=== PATIENT | female | born 1945 | race Caucasian/White ===

== ENCOUNTER 2017-01-25 07:28 | Outpatient (CLI) | payer MEDICARE, OTHER | END 2017-01-25 07:29 | disposition home or self-care (01) | DX: R71.8 Other abnormality of red blood cells (principal) ==

== ENCOUNTER 2017-09-22 20:04 | Outpatient (CLI) | payer MEDICARE | END 2017-09-22 20:05 | disposition critical access hospital (66) | LOC: EMS 20:04 | PROVIDERS: ATTEND Surgery | DX: R41.3 Other amnesia (principal) | CPT/HCPCS: A0425; A0429 ==

== ENCOUNTER 2017-09-22 20:29 | Emergency (ER) | payer MEDICARE ==
[2017-09-22 21:05] LABS: BASOPHILS % (AUTO) 0.3 %; EOSINOPHILS % (AUTO) 0.7 %; HCT - HEMATOCRIT 44.1 % (37.0-47.0); HGB - HEMOGLOBIN 14.7 g/dL (12.0-16.0); LYMPHOCYTES # (AUTO) 1.7 10^3/uL (1.5-3.5); MEAN CORPUSCULAR HEMOGLOBIN 34.9 pg (27.0-31.0); MEAN CORPUSCULAR HGB CONC 33.4 g/dL (32.0-36.0); MEAN CORPUSCULAR VOLUME 104.6 fL (81.0-99.0); MEAN PLATELET VOLUME 8.7 fL (7.9-10.8); MONOCYTES # (AUTO) 0.4 10^3/uL (0.0-1.0); MONOCYTES % (AUTO) 6.4 %; NEUTROPHILS # (AUTO) 3.9 10^3/uL (1.5-6.6); NEUTROPHILS % (AUTO) 64.6 %; NUCLEATED RED BLOOD CELLS AUTO 0.1 /100WBC; RED BLOOD COUNT 4.22 10^6/uL (4.20-5.40); RED CELL DISTRIBUTION WIDTH 12.8 % (12.0-15.0)
[2017-09-22 21:17] LABS: ALBUMIN/GLOBULIN RATIO 1.3 (1.0-2.2); BILIRUBIN,TOTAL 0.2 mg/dL (0.2-1.0); CALCIUM 8.9 mg/dL (8.5-10.3); CREATININE 0.5 mg/dL (0.4-1.0); POTASSIUM 3.4 mmol/L (3.5-5.0); TOTAL PROTEIN 7.9 g/dL (6.7-8.2)
[2017-09-22 21:19] LABS: BILIRUBIN,URINE NEGATIVE (NEGATIVE)
[2017-09-22 21:20] LABS: UA w/ MICROSCOPIC CHARGE YES
[2017-09-22 21:45] LABS: UR CULTURE IF IND INDICATED
[2017-09-22] MEDS ORDERED: SODIUM CHLORIDE 0.9% 1,000 ML IV ONE (21:55)
--- NOTE | 2017-09-22 21:55 | ED Physician Documentation ---
History of Present Illness - Stated complaint Stated Complaint: FALL - Chief complaint Chief Complaint: General - History obtained from History obtained from: Patient, Family, EMS - History of Present Illness Timing: Today Pain level max: 0 Pain level now: 0 Improved by: nothing Worsened by: nothing - Additonal information Additional information: Patient is a 71-year-old female who states that she had 2 shots of tequila earlier today with her brother. She was found on her porch today screaming for help. She denies any injuries. She apparently had a bloody towel at that time and states that she often gets frequent nosebleeds. She does not recall what happened. She is not complaining of any pain in the head, neck or anywhere else on her body. She does have a splint on the left wrists and hand for chronic injuries. Does not have any complaints at this time. Review of Systems Unable to obtain: Intoxicated Constitutional: denies: Fever, Chills Ears: denies: Ear pain Nose: denies: Rhinorrhea / runny nose, Congestion Throat: denies: Sore throat Respiratory: denies: Cough GI: denies: Abdominal Pain, Nausea, Vomiting, Diarrhea Skin: denies: Rash Musculoskeletal: denies: Neck pain, Back pain Neurologic: reports: Confused (repetitive questioning). denies: Focal weakness , Numbness, Headache PD PAST MEDICAL HISTORY - Past Medical History Past Medical History: Yes Psych: Depression, Anxiety - Past Surgical History Past Surgical History: Yes General: Cholecystectomy - Present Medications Home Medications: Ambulatory Orders Medication Instructions Recorded Confirmed Acetaminophen [Tylenol] 650 mg PO PRN PRN 09/22/17 09/22/17 Acyclovir 400 mg PO BID 09/22/17 09/22/17 Amitriptyline HCl 75 mg PO TID 09/22/17 09/22/17 Amoxicillin Chew [Amoxicillin] 125 mg PO DAILY 09/22/17 09/22/17 Citalopram [CeleXA] 30 mg PO DAILY 09/22/17 09/22/17 Fluticasone [Flonase] 1 spray IN DAILY 09/22/17 09/22/17 Gabapentin 300 mg PO DAILY 09/22/17 09/22/17 Ibuprofen 600 mg PO PRN PRN 09/22/17 09/22/17 Lactobacillus Acidophilus 1 cap PO DAILY 09/22/17 09/22/17 [Probiotic Acidophilus] Lorazepam [Ativan] 1 mg PO PRN PRN 09/22/17 09/22/17 Melatonin 5 mg PO ACHS 09/22/17 09/22/17 - Allergies Allergies/Adverse Reactions: Allergies Allergy/AdvReac Type Severity Reaction Status Date / Time No Known Drug Allergies Allergy Verified 09/22/17 20:40 - Social History Does the pt smoke?: No Smoking Status: Never smoker Does the pt drink ETOH?: Yes ETOH Use: Liquor Does the pt have substance abuse?: No - Family History Family history: reports: Non contributory - Immunizations Immunizations are current?: No PD ED PE NORMAL - Vitals Vital signs reviewed: Yes - General General: Alert and oriented X 3, No acute distress, Other (intoxicated) - HEENT HEENT: Atraumatic, PERRL, EOMI, Moist mucous membranes, Pharynx benign, Other ( Dried blood in the right nare. No active bleeding.) - Neck Neck: Supple, no meningeal sign, No bony TTP - Cardiac Cardiac: RRR, Strong equal pulses - Respiratory Respiratory: No respiratory distress, Clear bilaterally - Abdomen Abdomen: Soft, Non tender, Non distended - Back Back: No spinal TTP - Derm Derm: Warm and dry - Extremities Extremities: No deformity, No tenderness to palpate, Normal ROM s pain - Neuro Neuro: Alert and oriented X 3, president & founder 2-12 intact, No motor deficit, No sensory deficit, Normal speech Eye Opening: Spontaneous Motor: Obeys Commands Verbal: Confused (intermittently confused and repetitive) GCS Score: 14 - Psych Psych: Normal mood, Normal affect Results - Vitals Vitals: Vital Signs - 24 hr 09/22/17 09/22/17 20:36 23:29 Temperature 36.7 C Heart Rate 84 98 Respiratory 16 16 Rate Blood Pressure 180/99 H 160/91 H O2 Saturation 97 96 Oxygen O2 Source Room air - EKG (time done) 2224 Rate: Rate (enter#) (84) Rhythm: NSR [place]: Normal Intervals: Normal [place] QRS: Normal Ischemia: Normal ST segments - Labs Labs: Laboratory Tests 09/22/17 09/22/17 09/22/17 20:57 20:57 21:05 WBC 6.0 RBC 4.22 Hgb 14.7 Hct 44.1 MCV 104.6 H MCH 34.9 H MCHC 33.4 RDW 12.8 Plt Count 215 MPV 8.7 Neut # 3.9 Lymph # 1.7 [place] # 0.4 Eos # 0.0 Baso # 0.0 Absolute Nucleated RBC 0.00 Nucleated RBC % 0.1 Sodium 134 L Potassium 3.4 L Chloride 95 L Carbon Dioxide 26 Anion Gap 13.0 BUN 15 Creatinine 0.5 Estimated GFR (MDRD) 121 Glucose 98 Calcium 8.9 Total Bilirubin 0.2 AST 32 ALT 30 Alkaline Phosphatase 96 Total Protein 7.9 Albumin 4.5 Globulin 3.4 Albumin/Globulin Ratio 1.3 Lipase 30 Urine Color YELLOW Urine Clarity HAZY Urine pH 6.0 Ur Specific [place] <=1.005 Urine Protein NEGATIVE Urine Glucose (UA) NEGATIVE Urine Ketones NEGATIVE Urine Occult Blood SMALL H Urine Nitrite NEGATIVE Urine Bilirubin NEGATIVE Urine Urobilinogen 0.2 (NORMAL) Ur Leukocyte Esterase SMALL H Urine RBC 0-5 Urine WBC 6-10 H Ur Squamous Epith Cells FEW Squamous Urine Bacteria Few Ur Microscopic Review INDICATED Urine Culture Comments INDICATED Urine Opiates Screen NEGATIVE Ur Oxycodone Screen NEGATIVE Urine Methadone Screen NEGATIVE Ur Propoxyphene Screen NEGATIVE Ur Barbiturates Screen NEGATIVE Ur Tricyclics Screen POSITIVE H Ur Phencyclidine Scrn NEGATIVE Ur Amphetamine Screen NEGATIVE U Methamphetamines Scrn NEGATIVE U Benzodiazepines Scrn NEGATIVE Urine Cocaine Screen NEGATIVE U Cannabinoids Screen NEGATIVE Ethyl Alcohol 279.6 - Rads (name of study) CT head Radiology: Prelim report reviewed, EMP read contemporaneously, See rad report ( no acute intracranial abnormality) CT cervical spine Radiology: Prelim report reviewed, EMP read contemporaneously, See rad report ( no acute fracture) PD MEDICAL DECISION MAKING - ED course Complexity details: reviewed results, re-evaluated patient, considered differential, d/w patient, d/w family ED course: Patient is a 71-year-old female presents to the emergency department with alcohol intoxication. Unclear what happened tonight, EKG does not show any acute changes. No acute findings on telemetry. Head CT is negative. Cervical spine CT is negative. Family is comfortable taking her home at this time. She did have some slight dried blood in the right nare. No active bleeding. Counseled regarding the need to stop drinking and resources given. Patient and family counseled regarding signs and symptoms for which I believe and urgent re- evaluation would be necessary. Patient with good understanding of and agreement to plan and is comfortable going home at this time This document was made in part using voice recognition software. While efforts are made to proofread this document, sound alike and grammatical errors may occur. Ambulating well in the emergency department. Departure - Departure Disposition: 01 Home, Self Care Clinical Impression: Alcohol intoxication Qualifiers: Complication of substance-induced condition: uncomplicated Qualified Code(s): F10.920 - Alcohol use, unspecified with intoxication, uncomplicated Condition: Good Instructions: ED Alcohol Intoxication Follow-Up: KATHIA YOUNG MD [Primary Care Provider] - Within 1 week Comments: You need to stop drinking alcohol. you can talk to your doctor about programs to help you quit. Return if you worsen. Discharge Date/Time: 09/22/17 23:30
--- NOTE | 2017-09-22 22:34 | CT Preliminary Report ---
Exam: CT HEAD W/O IMPRESSION: Generalized age-related cortical atrophic changes without evidence of acute intracranial abnormality. [facility] SITE ID: [id number]
--- NOTE | 2017-09-22 22:37 | CT Preliminary Report ---
Exam: CT CERVICAL SPINE W/O IMPRESSION: No acute cervical spine fracture. [facility] SITE ID: [id number]
--- NOTE | 2017-09-22 22:46 | CT Report ---
EXAM: CT HEAD EXAM DATE: 09/22/2017 10:11 PM. CLINICAL HISTORY: Epistaxis, amnesia, found down. COMPARISON: None. TECHNIQUE: Multiaxial CT images were obtained from the foramen magnum to the vertex. Reformats: Coron al. IV contrast: None. In accordance with CT protocol optimization, one or more of the following dose reduction techniques w ere utilized for this exam: automated exposure control, adjustment of mA and/or KV based on patient s ize, or use of iterative reconstructive technique. FINDINGS: Parenchyma: No intraparenchymal hemorrhage. No evidence of mass, midline shift, or CT findings of acu te infarction. [place]in-white differentiation is distinct. Mild diffuse chronic microangiopathic white ma tter changes are evident. Extraaxial Spaces: Normal for age. No subdural or epidural collections identified. Ventricles: The ventricles and cortical sulci are mildly enlarged, consistent with age-related tissue loss. Sinuses and orbits: Imaged paranasal sinuses, orbits, and mastoids show no significant abnormality. Bones: No evidence of fracture or calvarial defect. IMPRESSION: Generalized age-related cortical atrophic changes without evidence of acute intracranial abnormality. [facility] Referring Provider Line: [phone] SITE ID: [id number]
--- NOTE | 2017-09-22 22:52 | CT Report ---
EXAM: CT CERVICAL SPINE WITHOUT CONTRAST DATE: 09/22/2017 10:20 PM. HISTORY: Epistaxis, amnesia, found down. COMPARISONS: None. TECHNIQUE: Thin-section axial images were acquired of the cervical spine without contrast. Post-proce ssing: Coronal and sagittal reformats. Other: None. In accordance with CT protocol optimization, one or more of the following dose reduction techniques w ere utilized for this exam: automated exposure control, adjustment of mA and/or KV based on patient s ize, or use of iterative reconstructive technique. FINDINGS: Alignment: Degenerative retrolisthesis at C2-C3 measures 12 millimeters. Degenerative grade 1 lili listhesis is present at C3-C4 measuring 23 millimeters and at C4-C5 and C5-C6 measuring 12 millimet ers. There is no scoliosis. Bones: No acute cervical spine fracture is identified. Interspace Levels/Facets: C1-C2: Mild degenerative changes are present anteriorly without craniocervical stenosis. C2-C3: Bilateral facet arthropathy is present without spinal canal or foraminal stenosis. C3-C4: Anterolisthesis is present at this level with uncovering of the disk. The spinal canal and for tello are patent. C4-C5: Anterolisthesis is present this level with uncovering of the disk. The spinal canal and forami na are patent. C5-C6: Anterolisthesis is present at this level with uncovering of the disk. The spinal canal and for tello are patent. C6-C7: The spinal canal is patent. There is moderate right and mild left foraminal narrowing due to u ncovertebral hypertrophy. C7-T1: Unremarkable. Musculature: There is moderate diffuse fatty atrophy of the posterior paraspinal muscles. Other: A 6 mm hypodense nodule is noted in the anterior left thyroid lobe (image 59, series 4). The l melia apices are clear. IMPRESSION: No acute cervical spine fracture. [facility] Referring Provider Line: [phone] SITE ID: [id number]
[2017-09-22 23:30] VITALS: BP 160/91
== END 2017-09-22 23:30 | disposition home or self-care (01) ==
LOC: EDUNIT# → ED 20:29
DX: F10.920 Alcohol use, unspecified with intoxication, uncomplicated (principal); R04.0 Epistaxis; R41.3 Other amnesia
CPT/HCPCS: 36415; 70450; 72125; 80053; 80306; 81001; 83690; 85025; 87086; 93005; 96360; 99283; 99284; G0480; 80320; 81003

== ENCOUNTER 2017-12-24 18:33 | Emergency (ER) | payer MEDICARE ==
[2017-12-24] MEDS ORDERED: AMPICILLIN/SULBACTAM 3 GM in SODIUM CHLORIDE 0.9% MINIBAG 100 ML IV STA (20:27)
[2017-12-24] MEDS ORDERED: MORPHINE 2 MG/ML CARPUJECT IVP STA (20:30)
[2017-12-24] MEDS ORDERED: diphenhydrAMINE INJ 50 MG/ML VIAL IVP STA (20:31)
[2017-12-24] MEDS ORDERED: SODIUM CHLORIDE 0.9% 1,000 ML IV ONE (20:31)
--- NOTE | 2017-12-24 20:52 | ED Physician Documentation ---
PD HPI UPPER EXT INJURY - Stated complaint Stated Complaint: LT THUMB LAC, REDNESS - Chief complaint Chief Complaint: Wound - History of Present Illness Location: Left, Finger Type of injury: Puncture wound Where injury occurred: Home Timing - onset: Yesterday Timing - details: Gradual onset, Still present Worsened by: Moving, Palpating Similar symptoms before: Has not had sx before Recently seen: Not recently seen - Additonal information Additional information: Patient is a 72 year old female with no significant past medical history who is presenting to the emergency department for finger pain, and swelling and streaking redness up her arm. Patient states that she was bit by her cat two days ago and her symptoms have become progressively worse. Review of Systems Constitutional: denies: Fever, Chills Eyes: denies: Decreased vision Ears: denies: Ear pain, Drainage/discharge Nose: reports: Reviewed and negative Throat: reports: Reviewed and negative Cardiac: reports: Reviewed and negative Respiratory: denies: Dyspnea, Cough GI: reports: Nausea. denies: Abdominal Pain, Vomiting : reports: Reviewed and negative Skin: reports: Rash, Lesions Musculoskeletal: reports: Extremity pain, Extremity swelling Neurologic: denies: Generalized weakness, Focal weakness, Numbness Immunocompromised: denies: Immunocompromised PD PAST MEDICAL HISTORY - Past Medical History Past Medical History: Yes Psych: Depression, Anxiety - Past Surgical History Past Surgical History: Yes General: Cholecystectomy - Present Medications Home Medications: Ambulatory Orders Medication Instructions Recorded Confirmed Acetaminophen [Tylenol] 650 mg PO PRN PRN 09/22/17 09/22/17 Acyclovir 400 mg PO BID 09/22/17 09/22/17 Amitriptyline HCl 75 mg PO TID 09/22/17 09/22/17 Amoxicillin Chew [Amoxicillin] 125 mg PO DAILY 09/22/17 09/22/17 Citalopram [CeleXA] 30 mg PO DAILY 09/22/17 09/22/17 Fluticasone [Flonase] 1 spray IN DAILY 09/22/17 09/22/17 Gabapentin 300 mg PO DAILY 09/22/17 09/22/17 Ibuprofen 600 mg PO PRN PRN 09/22/17 09/22/17 Lactobacillus Acidophilus 1 cap PO DAILY 09/22/17 09/22/17 [Probiotic Acidophilus] Lorazepam [Ativan] 1 mg PO PRN PRN 09/22/17 09/22/17 Melatonin 5 mg PO ACHS 09/22/17 09/22/17 Amox/Clav 875/125 [Augmentin] 1 each PO Q12H #20 tablet 12/24/17 - Allergies Allergies/Adverse Reactions: Allergies Allergy/AdvReac Type Severity Reaction Status Date / Time amoxicillin [From Augmentin] Allergy Intermediate Unknown Verified 12/24/17 19: 09 clavulanic acid Allergy Intermediate Unknown Verified 12/24/17 19:09 [From Augmentin] - Social History Does the pt smoke?: No Smoking Status: Never smoker Does the pt drink ETOH?: Yes Does the pt have substance abuse?: No - Immunizations Immunizations are current?: Yes Immunizations: TDAP current <10years PD ED PE NORMAL - Vitals Vital signs reviewed: Yes - General General: Alert and oriented X 3 - HEENT HEENT: Atraumatic, PERRL - Cardiac Cardiac: RRR - Respiratory Respiratory: No respiratory distress - Abdomen Abdomen: Soft - Neuro Neuro: Alert and oriented X 3, No motor deficit, Normal speech Eye Opening: Spontaneous - Psych Psych: Normal mood PD ED PE EXPANDED - Derm Derm: Rash (streaking redness coming from the left thumb up the forearm) - Extremities Extremities: Left finger(s) (tenderness, erythema and swelling of left 1st digit ) Results - Vitals Vitals: Vital Signs - 24 hr 12/24/17 12/24/17 12/24/17 19:04 21:27 22:21 Temperature 36.4 C L 36.7 C 36.6 C Heart Rate 95 77 74 Respiratory 18 18 18 Rate Blood Pressure 156/96 H 159/110 H 168/92 H O2 Saturation 98 100 100 Oxygen O2 Source Room air PD MEDICAL DECISION MAKING - ED course Complexity details: reviewed old records, reviewed results, re-evaluated patient , considered differential, d/w patient ED course: Patient was seen and examined at bedside. Due to the severity of the cellulitis iv access was gained and patient was treated with fluids, 3gms of unasyn, morphine and benadryl. When patient was asked about her augmentin allergy she stated it was not severe and she could take it if it was the recommended antibiotic. Patient tolerated the IV treatment well and was stable for discharge with outpatient followup. Departure - Departure Disposition: 01 Home, Self Care Clinical Impression: Cellulitis and abscess of hand Condition: Good Instructions: ED Bite Animal General, ED Infec Skin Cellulitis Follow-Up: Osorio Stephenson MD [Primary Care Provider] - Within 3 Days Prescriptions: Amox/Clav 875/125 [Augmentin] 1 each PO Q12H #20 tablet Comments: Your symptoms today are being caused by cellulitis secondary to your cat bite. You had your first dose of antibiotics via the iv tonight. You will be on augmentin twice a day for the next 10 days. You can take motrin or tylenol as needed for pain. You should follow up with your doctor this week for wound check. You may return to the emergency department at any time for new, worsening or uncontrollable symptoms. Discharge Date/Time: 12/24/17 22:46
[2017-12-24 22:36] VITALS: BP 168/92
== END 2017-12-24 22:46 | disposition home or self-care (01) ==
LOC: ED 18:33
DX: L03.114 Cellulitis of left upper limb (principal); L02.512 Cutaneous abscess of left hand; W55.01XA Bitten by cat, initial encounter
CPT/HCPCS: 96365; 96375; 99283; J1200

== ENCOUNTER 2019-08-26 14:55 | Outpatient (CLI) | payer MEDICARE | END 2019-08-26 14:56 | disposition EMS.NT | LOC: EMS 14:55 | PROVIDERS: ATTEND Surgery | DX: R41.0 Disorientation, unspecified (principal); F41.9 Anxiety disorder, unspecified ==

== ENCOUNTER 2019-09-24 11:02 | Outpatient (CLI) | payer MEDICARE ==
--- NOTE | 2019-09-25 04:14 | XRAY Report ---
Reason: M54.2 Procedure Date: 09/24/2019 Accession Number: [id number] / [id number] Procedure: XRS - Thoracic Spine 2 View CPT Code: Final Report FULL RESULT: EXAM: THORACIC SPINE RADIOGRAPHY EXAM DATE: 09/24/2019 11:31 AM. CLINICAL HISTORY: M54. 2. COMPARISON: CERVICAL SPINE 2 VIEW 09/24/2019 11:28 AM CERVICAL SPINE W/O 09/22/2017 10:13 PM. TECHNIQUE: 2 views. FINDINGS: Alignment: Normal. No spondylolisthesis or scoliosis. Bones: No fractures or bone lesions. Disks: Normal. Disk heights are maintained. Soft Tissues: Normal. The visualized lungs and cardiomediastinal silhouette are normal. IMPRESSION: Grossly negative thoracic spine radiography. If there is continued clinical concern, CT is suggested in this elderly patient. [facility]
--- NOTE | 2019-09-25 04:16 | XRAY Report ---
Reason: M54.2 Procedure Date: 09/24/2019 Accession Number: [id number] / [id number] Procedure: XRS - Cervical Spine 2 View CPT Code: Final Report FULL RESULT: EXAM: CERVICAL SPINE RADIOGRAPHY EXAM DATE: 09/24/2019 11:31 AM. CLINICAL HISTORY: Fall with neck pain COMPARISONS: CERVICAL SPINE W/O 09/22/2017 10:13 PM. TECHNIQUE: 3 views. FINDINGS: Alignment: Stable without acute malalignment seen. Stable minimal degenerative anterolisthesis of C3 on C4 and retrolisthesis of C2 on C3. Bones: The cervical vertebral bodies and posterior elements are well visualized from the skull base through C7-T1. No fractures or bone lesions. Degenerative changes: Moderate disk level degenerative changes at C5-C6, C6-C7, and C7-T1. Advanced diffuse facet DJD again noted. Soft Tissues: Normal. No prevertebral soft tissue swelling. The visualized lung apices are clear. IMPRESSION: 1. No acute abnormality seen in the cervical spine. 2. Moderate to severe degenerative changes appear grossly stable. [facility]
== END 2019-09-24 11:03 | disposition home or self-care (01) ==
LOC: DI.S 11:02
PROVIDERS: ATTEND Nurse Practitioner Family
DX: M50.322 Other cervical disc degeneration at C5-C6 level (principal); M47.812 Spondylosis without myelopathy or radiculopathy, cervical region; M43.12 Spondylolisthesis, cervical region
CPT/HCPCS: 72040; 72070

== ENCOUNTER 2019-09-30 14:31 | Outpatient (CLI) | payer MEDICARE | END 2019-09-30 14:32 | disposition critical access hospital (66) | LOC: EMS 14:31 | PROVIDERS: ATTEND Surgery | DX: M25.512 Pain in left shoulder (principal); M25.511 Pain in right shoulder; M54.2 Cervicalgia; R06.02 Shortness of breath | CPT/HCPCS: A0425; A0429 ==

== ENCOUNTER 2019-09-30 14:55 | Observation (INO) | payer MEDICARE ==
[2019-09-30] MEDS ORDERED: HYDROmorphone 1 MG/ML CARPUJECT IVP STA (15:04)
--- NOTE | 2019-09-30 15:08 | ED Physician Documentation ---
PD HPI BACK PAIN - Stated complaint Stated Complaint: NECK AND HEAD PX - History obtained from History obtained from: Patient, EMS - History of Present Illness Timing - onset: Other (73-year-old woman with history of colon cancer resection about 2 months ago presents with upper back and neck pain for the last 1-1/2 to 2 weeks is much worse with movement. She notes shortness of breath with it and productive cough. History is somewhat limited on arrival because she is histrionic and uncooperative. She refuses to move at all for examination. She says she was seen in the doctor's office for this without a specific diagnosis and was given codeine. On initial evaluation for the most part is refusing to talk to the until she get something for pain.) Review of Systems Constitutional: denies: Fever Cardiac: denies: Chest pain / pressure Respiratory: reports: Dyspnea, Cough GI: denies: Abdominal Pain, Nausea PD PAST MEDICAL HISTORY - Past Medical History Psych: Depression, Anxiety - Past Surgical History Past Surgical History: Yes General: Cholecystectomy - Present Medications Home Medications: Ambulatory Orders Medication Instructions Recorded Confirmed Acetaminophen [Tylenol] 650 mg PO PRN PRN 09/22/17 09/22/17 Acyclovir 400 mg PO BID 09/22/17 09/22/17 Amitriptyline HCl 75 mg PO TID 09/22/17 09/22/17 Citalopram [CeleXA] 30 mg PO DAILY 09/22/17 09/22/17 Fluticasone [Flonase] 1 spray IN DAILY 09/22/17 09/22/17 Gabapentin 300 mg PO DAILY 09/22/17 09/22/17 Ibuprofen 600 mg PO PRN PRN 09/22/17 09/22/17 Lorazepam [Ativan] 1 mg PO PRN PRN 09/22/17 09/22/17 Melatonin 5 mg PO ACHS 09/22/17 09/22/17 - Allergies Allergies/Adverse Reactions: Allergies Allergy/AdvReac Type Severity Reaction Status Date / Time amoxicillin [From Augmentin] Allergy Intermediate Unknown Verified 09/30/19 15:01 clavulanic acid Allergy Intermediate Unknown Verified 09/30/19 15:01 [From Augmentin] - Social History Does the pt smoke?: No Smoking Status: Never smoker Does the pt drink ETOH?: Yes Does the pt have substance abuse?: No - Immunizations Immunizations are current?: Yes Immunizations: TDAP current <10years PD ED PE NORMAL - Vitals Vital signs reviewed: Yes - General General: Other (She is histrionic but alert and oriented) - HEENT HEENT: PERRL, EOMI - Neck Neck: Other (She is in a c-collar placed by the paramedics for comfort with mild diffuse tenderness of the musculature of the posterior C-spine) - Cardiac Cardiac: RRR, No murmur - Respiratory Respiratory: No respiratory distress, Other (Clear to auscultation bilaterally anteriorly but she is unable to sit up or move for examination of her back initially.) - Abdomen Abdomen: Non tender - Derm Derm: Normal color, Warm and dry - Extremities Extremities: No edema, No calf tenderness / cord - Neuro Neuro: Alert and oriented X 3, Normal speech - Psych Psych: Other (Histrionic) Results - Vitals Vitals: Vital Signs - 24 hr 09/30/19 09/30/19 15:01 15:47 Temperature 36.5 C Heart Rate 100 102 H Respiratory 18 26 H Rate Blood Pressure 149/133 H 156/92 H O2 Saturation 86 L 100 Oxygen O2 Source Nasal cannula - EKG (time done) 1538 Rate: Rate (enter#) (100) Rhythm: Sinus tachycardia [place]: Normal Intervals: Normal [place] QRS: Normal Ischemia: Non specific changes. No: ST elevation c/w ischemia, ST depression Computer interpretation: Agree with computer - Labs Labs: Laboratory Tests 09/30/19 09/30/19 09/30/19 15:15 15:15 15:15 WBC 7.6 RBC 3.75 L Hgb 10.3 L Hct 33.6 L MCV 89.6 MCH 27.5 MCHC 30.7 L RDW 24.6 H Plt Count 251 MPV 9.8 Neut # (Auto) 5.9 Lymph # (Auto) 0.8 L [place] # (Auto) 0.6 Eos # (Auto) 0.1 Baso # (Auto) 0.0 Absolute Nucleated RBC 0.00 Nucleated RBC % 0.0 Manual Slide Review Indicated Platelet Estimate NORMAL (130-450,000) Platelet Morphology NORMAL APPEARANCE RBC Morph Micro Appear 3+ ANISOCYTOSIS Sodium 129 L Potassium 4.4 Chloride 89 L Carbon Dioxide 29 Anion Gap 11.0 BUN 14 Creatinine 0.7 Estimated GFR (MDRD) 82 L Glucose 103 H Calcium 8.9 Total Bilirubin 0.5 AST 39 ALT 48 Alkaline Phosphatase 143 H Troponin I High Sens 8.4 Total Protein 7.5 Albumin 3.8 Globulin 3.7 Albumin/Globulin Ratio 1.0 Lipase 25 - Rads (name of study) CT Cspine Radiology: EMP read contemporaneously (1. There is a slightly widened appearance to the anterior aspect of the C6-C7 disk space and there is indistinctness involving the supra endplate at C7 as well as anterior C7 osteophytes. given history of trauma, a fracture through this disk space extending into the superior C7 vertebral body is not excluded. Cervical spine MRI would be of value. 2. Interval increase in retrolisthesis of C2 relative to C3. 3. Solid osseous fusion is seen across the facet joints from C3-C5. This is stable. 4. Scattered uncovertebral joint spurring and facet hypertrophy are present. This results in scattered foraminal stenosis discussed.) CT PA Chest Radiology: EMP read contemporaneously (1. Single nonocclusive subsegmental acute pulmonary embolus is identified in the lateral basal right lower lobe. 2. Minimal dependent atelectasis bilaterally. 3. Mild 4.3 cm diameter fusiform ectasia of the ascending aorta. ) PD MEDICAL DECISION MAKING - ED course ED course: 73-year-old woman presents with hypoxemia and back pain, had a surgery a couple of months ago. This is concerning for PE and she does have a tiny PE on CT. She did have an oxygen requirement and therefore will be placed in observation for further evaluation and treatment. The neck pain is referred, not traumatic so I think the CT opinion of the radiologist is spurious under the circumstances. Spoke with Dr. Basurto for observation at 4:55 PM. Departure - Departure Disposition: ED Place in Observation Clinical Impression: Hypoxemia, Nontraumatic neck pain Pulmonary embolism Qualifiers: Pulmonary embolism type: unspecified Chronicity: acute Acute cor pulmonale presence: without acute cor pulmonale Qualified Code(s): I26.99 - Other pulmonary embolism without acute cor pulmonale Condition: Serious
[2019-09-30 15:21] LABS: BASOPHILS % (AUTO) 0.3 %; EOSINOPHILS # (AUTO) 0.1 10^3/uL (0.0-0.7); EOSINOPHILS % (AUTO) 1.4 %; HGB - HEMOGLOBIN 10.3 g/dL (12.0-16.0); LYMPHOCYTES # (AUTO) 0.8 10^3/uL (1.5-3.5); LYMPHOCYTES % (AUTO) 10.4 %; MEAN CORPUSCULAR HEMOGLOBIN 27.5 pg (27.0-31.0); MEAN CORPUSCULAR HGB CONC 30.7 g/dL (32.0-36.0); MEAN CORPUSCULAR VOLUME 89.6 fL (81.0-99.0); MEAN PLATELET VOLUME 9.8 fL (7.9-10.8); MONOCYTES # (AUTO) 0.6 10^3/uL (0.0-1.0); MONOCYTES % (AUTO) 8.4 %; NEUTROPHILS # (AUTO) 5.9 10^3/uL (1.5-6.6); NEUTROPHILS % (AUTO) 77.7 %; PLT - PLATELET COUNT 251 10^3/uL (130-450); RED BLOOD COUNT 3.75 10^6/uL (4.20-5.40); RED CELL DISTRIBUTION WIDTH 24.6 % (12.0-15.0); WHITE BLOOD COUNT 7.6 x10^3/uL (4.8-10.8)
[2019-09-30 15:33] LABS: ALBUMIN 3.8 g/dL (3.2-5.5); BILIRUBIN,TOTAL 0.5 mg/dL (0.2-1.0); CALCIUM 8.9 mg/dL (8.5-10.3); CREATININE 0.7 mg/dL (0.4-1.0); TOTAL PROTEIN 7.5 g/dL (6.7-8.2)
[2019-09-30] MEDS ORDERED: IOVERSOL 320 100 ML VIAL IVP ONE ×2 (15:36→16:37)
[2019-09-30] MEDS ORDERED: LORazepam 2 MG/ML VIAL IVP STA (15:46)
[2019-09-30 15:47] LABS: PLATELET ESTIMATE, MANUAL NORMAL (130-450,000) (NORMAL); PLATELET MORPHOLOGY NORMAL APPEARANCE (NORMAL); RBC MORPHOLOGY (MULTIPLE) 3+ ANISOCYTOSIS (NORMAL)
[2019-09-30] MEDS ORDERED: KETOROLAC 30 MG/ML VIAL IVP STA (16:34)
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
[2019-09-30] MEDS ORDERED: ENOXAPARIN 80 MG/0.8 ML SYRINGE SUBQ STA (16:49)
--- NOTE | 2019-09-30 16:52 | CT Report ---
Reason: back pain hypxemia Procedure Date: 09/30/2019 Accession Number: [id number] / [id number] Procedure: CT - ANGIO CHEST W/WO CPT Code: Final Report FULL RESULT: EXAM: CT ANGIOGRAM CHEST EXAM DATE: 09/30/2019 04:24 PM. CLINICAL HISTORY: Back pain, hypoxemia. COMPARISON: THORACIC SPINE 2 VIEW 09/24/2019 11:38 AM. TECHNIQUE: Routine helical imaging was performed through the chest in the pulmonary arterial phase. IV Contrast: 60 cc Optiray 320. Reconstructions: Coronal 3-D MIP reconstructions.Sagittal and coronal. In accordance with CT protocol optimization, one or more of the following dose reduction techniques were utilized for this exam: automated exposure control, adjustment of mA and/or KV based on patient size, or use of iterative reconstructive technique. FINDINGS: Pulmonary Arteries: Diagnostic quality: Adequate through the segmental arteries. There is a small nonocclusive acute subsegmental pulmonary embolism in the lateral basal right lower lobe as seen on series 5 images 62-64 and series 12 images 85-87. No other thromboemboli are identified on the right or left. RV/LV is within normal limits. There is no interventricular septal bowing. There is no reflux of contrast material in the IVC. Lungs/Pleura: There is moderate respiratory motion artifact. Accounting for expiratory-phase, there is no garth central airway abnormality. Lung volumes are low. There is mild dependent linear and groundglass atelectasis in both lungs. There is no lobar consolidation. There is no generalized interstitial abnormality. There is no emphysema. There is no pleural fluid or pneumothorax. Mediastinum: The heart size is normal. Lower thyroid gland and esophagus are unremarkable. No lymphadenopathy. Thoracic Aorta: Approximately 4.3 cm diameter fusiform ectasia of the ascending aorta with exact measurement problematic because of cardiac motion artifact. The thoracic aorta is slightly opacified with contrast. There is no gross dissection accounting for cardiac motion artifact. There is minimal calcification in the arch and descending thoracic aorta. Upper Abdomen: Gallbladder is surgically absent. Other: The visualized chest wall is unremarkable. Bones, including thoracic spine, are unremarkable. IMPRESSION: 1. Single nonocclusive subsegmental acute pulmonary embolus is identified in the lateral basal right lower lobe. 2. Minimal dependent atelectasis bilaterally. 3. Mild 4.3 cm diameter fusiform ectasia of the ascending aorta. RADIA The critical result notification system was initiated by Dr. Joey Morelos at 04:48 PM on 09/30/2019. The above critical result findings were discussed with Alvaro Luevano by Dr. Joey Morelos at 04:49 PM on 09/30/2019.
[2019-09-30] MEDS ORDERED: ONDANSETRON 4 MG/2 ML VIAL IVP PRN (17:07)
[2019-09-30] MEDS ORDERED: ACETAMINOPHEN 325 MG TABLET PO PRN (17:07)
[2019-09-30] MEDS ORDERED: LORazepam 1 MG TABLET PO PRN (17:22)
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
[2019-09-30] MEDS ORDERED: APIXABAN 5 MG TABLET PO SCH ×2 (18:00→21:00)
[2019-09-30 18:01] LABS: MUDS CUTOFF CONCENTRATIONS CUTOFF CONC BELOW:
[2019-09-30 18:02] LABS: BILIRUBIN,URINE NEGATIVE (NEGATIVE); GLUCOSE, URINE (UA) NEGATIVE (NEGATIVE); KETONES,URINE (UA) NEGATIVE (NEGATIVE); LEUKOCYTE ESTERASE, URINE SMALL (NEGATIVE); NITRITE,URINE NEGATIVE (NEGATIVE); OCCULT BLOOD,URINE TRACE-INTA (NEGATIVE); PH,URINE 6.5 PH (5.0-7.5); PROTEIN,URINE NEGATIVE (NEGATIVE); UROBILINOGEN,URINE 0.2 (NORMAL) E.U./dL (NORMAL)
[2019-09-30 18:04] LABS: CLARITY,URINE HAZY (CLEAR)
[2019-09-30 18:11] LABS: AMORPHOUS SEDIMENT,UR Few /LPF; BACTERIA,URINE Few /HPF (None Seen); RBC,URINE 0-5 /HPF (0-5); SQUAMOUS EPITHELIAL CELL,UR FEW Squamous (<= Few)
[2019-09-30 18:14] LABS: AMPHETAMINE SCREEN,URINE NEGATIVE (NEGATIVE); BENZODIAZEPINES SCREEN, URINE POSITIVE (NEGATIVE); COCAINE SCREEN URINE NEGATIVE (NEGATIVE); METHADONE SCREEN, URINE NEGATIVE (NEGATIVE); METHAMPHETAMINES SCREEN, URINE NEGATIVE (NEGATIVE); OPIATE SCREEN, URINE POSITIVE (NEGATIVE); OXYCODONE SCREEN, URINE POSITIVE (NEGATIVE); PROPOXYPHENE SCREEN, URINE NEGATIVE (NEGATIVE); TRICYCLIC ANTIDEPRESSANT,URINE POSITIVE (NEGATIVE)
[2019-09-30] MEDS ORDERED: MELATONIN 5 MG PO SCH (21:00)
[2019-09-30] MEDS: HYDROmorphone 0.5 MG/0.5 ML SYRINGE IVP PRN (21:05)
[2019-09-30] MEDS: SODIUM CHLORIDE FLUSH 0.9% 10 ML SYRINGE IVP PRN (21:05)
[2019-09-30] MEDS ORDERED: GABAPENTIN 300 MG CAPSULE PO SCH (21:20)
[2019-09-30] MEDS ORDERED: CITALOPRAM 10 MG TABLET PO SCH (21:22)
[2019-09-30] MEDS ORDERED: AMITRIPTYLINE 25 MG TABLET PO SCH (21:24)
[2019-09-30] MEDS: FAMOTIDINE 20 MG TABLET PO SCH (22:06)
--- NOTE | 2019-09-30 23:39 | Ultrasound Report ---
Reason: Eval for DVT Procedure Date: 09/30/2019 Accession Number: [id number] / [id number] Procedure: US - Duplex Ext Veins Bilateral CPT Code: Final Report FULL RESULT: EXAM: BILATERAL LOWER EXTREMITY VENOUS ULTRASOUND EXAM DATE: 09/30/2019 09:10 PM. CLINICAL HISTORY: PE. Evaluate for DVT. COMPARISON: None. TECHNIQUE: Real-time sonographic vascular imaging was performed by the elevator constructor helper through the lower extremities utilizing both color-flow and Doppler spectral analysis. Multiple sales representative health insurance static images were saved for review. FINDINGS: Right: Common Femoral Vein (CFV): Normal. CFV-GSV Junction: Normal. Profunda Femoral Vein (PFV): Normal. Femoral Vein (FV) Prox: Normal. Femoral Vein (FV) Mid: Normal. Femoral Vein (FV) Dist: Limited visualization. Popliteal Vein: Normal. Posterior Tibial Veins: Limited visualization. Peroneal Veins: Limited visualization. Left: Common Femoral Vein (CFV): Normal. CFV-GSV Junction: Normal. Profunda Femoral Vein (PFV): Normal. Femoral Vein (FV) Prox: Normal. Femoral Vein (FV) Mid: Normal. Femoral Vein (FV) Dist: Normal. Popliteal Vein: Normal. Posterior Tibial Veins: Limited visualization. Peroneal Veins: Limited visualization. Other: None. IMPRESSION: No evidence for deep venous thrombosis bilaterally. RADIA
[2019-10-01] MEDS: HYDROmorphone 0.5 MG/0.5 ML SYRINGE IVP PRN ×3 (00:11→08:26)
[2019-10-01] MEDS: SODIUM CHLORIDE FLUSH 0.9% 10 ML SYRINGE IVP SCH ×2 (00:37→08:30)
[2019-10-01 04:57] LABS: BASOPHILS % (AUTO) 0.5 %; EOSINOPHILS # (AUTO) 0.3 10^3/uL (0.0-0.7); HGB - HEMOGLOBIN 9.1 g/dL (12.0-16.0); LYMPHOCYTES # (AUTO) 1.1 10^3/uL (1.5-3.5); LYMPHOCYTES % (AUTO) 17.3 %; MEAN CORPUSCULAR HEMOGLOBIN 27.7 pg (27.0-31.0); MEAN CORPUSCULAR HGB CONC 30.4 g/dL (32.0-36.0); MEAN CORPUSCULAR VOLUME 90.9 fL (81.0-99.0); MONOCYTES % (AUTO) 15.2 %; NEUTROPHILS # (AUTO) 3.9 10^3/uL (1.5-6.6); PLT - PLATELET COUNT 235 10^3/uL (130-450); RED BLOOD COUNT 3.29 10^6/uL (4.20-5.40); RED CELL DISTRIBUTION WIDTH 24.4 % (12.0-15.0); WHITE BLOOD COUNT 6.5 x10^3/uL (4.8-10.8)
[2019-10-01] MEDS: SODIUM CHLORIDE FLUSH 0.9% 10 ML SYRINGE IVP PRN (04:59)
[2019-10-01] MEDS ORDERED: APIXABAN 5 MG TABLET PO SCH ×2 (05:00→20:00)
[2019-10-01 05:08] LABS: CALCIUM 8.8 mg/dL (8.5-10.3); CREATININE 0.6 mg/dL (0.4-1.0); MAGNESIUM 2.5 mg/dL (1.7-2.8)
[2019-10-01 05:22] LABS: PLATELET ESTIMATE, MANUAL NORMAL (130-450,000) (NORMAL)
--- NOTE | 2019-10-01 08:57 | PHARMACY PROGRESS NOTE ---
- Best Possible Medication History Admit Date and Time: 09/30/19 9167 Medication History completed: Yes Patient Interview: Completed As the person ultimately responsible for medication therapy, providers are able to order a medication from an existing home medication list in [facility] via the "Reconcile Routine" prior to Confirmation of that medication by network support manager. Such practice is discouraged except when the physician, in their clinical judgment, deems that a medical need exists for a medication without regard to previous use.
[2019-10-01] MEDS: FAMOTIDINE 20 MG TABLET PO SCH (08:59)
[2019-10-01] MEDS ORDERED: FLUTICASONE NASAL SPRAY NAS SCH (09:00)
[2019-10-01] MEDS ORDERED: CITALOPRAM 10 MG TABLET PO SCH ×2 (09:00→21:00)
[2019-10-01] MEDS ORDERED: GABAPENTIN 300 MG CAPSULE PO SCH ×2 (09:00→21:00)
[2019-10-01] MEDS ORDERED: HYDROmorphone 1 MG/ML CARPUJECT IVP SCH (09:29)
[2019-10-01] MEDS ORDERED: CYCLOBENZAPRINE 10 MG TABLET PO PRN (09:30)
[2019-10-01] MEDS ORDERED: ACETAMINOPHEN/CODEINE 300 MG/30 MG TABLET PO PRN (10:09)
[2019-10-01] MEDS ORDERED: IBUPROFEN 600 MG TABLET PO SCH (12:00)
[2019-10-01] MEDS ORDERED: VANCOMYCIN 1 GM VIAL ONE ×3 (12:04→12:16)
[2019-10-01 12:29] VITALS: BP 126/76
--- NOTE | 2019-10-01 15:09 | Discharge Plan ---
Discharge Plan Problem Reviewed?: Yes Disposition: Home, Self Care Condition: Stable Prescriptions: Apixaban [Eliquis] 10 mg PO 799,1999 #70 tablet Cyclobenzaprine [Flexeril] 10 mg PO TID PRN #5 tablet PRN Reason: Spasms Oxycodone HCl/Acetaminophen [Oxycodone-Acetaminophen 10-325] 1 tab PO Q6H PRN #4 tablet PRN Reason: Pain Diet: Regular Activity Restrictions: Activity as Tolerated Shower Restrictions: No Instruction Topics: Apixaban oral tablets, Embolism Pulmonary Health Concerns: You were in the hospital to treat your shortness of breath, you had a low oxygen level which was related to a blood clot in the lungs. You are now on blood thinners which you should take for 3 months, the first month of the prescription is ordered for you as your discharge. An Echocardiogram (ultrasound of the heart) was planned, to evaluate if the heart is affected by the blood clot in your lungs. There is no Echo service available here today, since it is [place]. You should see your PCP who would need to order this test for you as an outpatient. In addition, we treated your pain and muscle spasm in the neck and you are being discharged with several tablets of a muscle relaxants (Flexeril) and pain medication (Tylenol and codeine). Please do not overuse these medications since they may be adding to your problem of urinary retention. Your new prescriptions were sent electronically to your pharmacy, and you have paper prescriptions for a back-up. Resume your other prehospital medications. See your PCP in the next 1 to 2 weeks for further management of both problems and for refills. If you have new or worsening symptoms, call your PCP or come to the ER. Plan of Treatment: As above. Care Goals: Stabilization and improvement of symptoms are the goals. Assessment: Patient understands. No Smoking: If you smoke, Please STOP! Call for help. Follow-up with: Osorio Stephenson MD [Primary Care Provider] -
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
[2019-10-01] MEDS ORDERED: APIXABAN 5 MG TABLET PO ONE (16:00)
== END 2019-10-01 16:00 | disposition home or self-care (01) ==
LOC: EDUNIT# → ED 14:55 → MS2 17:05
PROVIDERS: ADMIT Internal Medicine; ATTEND Internal Medicine
DX: I26.99 Other pulmonary embolism without acute cor pulmonale (principal); R09.02 Hypoxemia; M54.2 Cervicalgia; M62.830 Muscle spasm of back; F41.9 Anxiety disorder, unspecified; F32.9 Major depressive disorder, single episode, unspecified; E87.1 Hypo-osmolality and hyponatremia; D64.9 Anemia, unspecified; C18.9 Malignant neoplasm of colon, unspecified; Z98.1 Arthrodesis status; R94.31 Abnormal electrocardiogram [ECG] [EKG]; Z90.49 Acquired absence of other specified parts of digestive tract
CPT/HCPCS: 36415; 51701; 71275; 72125; 80048; 80053; 81001; 83540; 83690; 83735; 84466; 84484; 85025; 87086; 93005; 93970; 94761; 96372; 96374; 96375; 96376; 97162; 97530; 99284; 99285; A9270; G0378; J1170; J1650; J2060; J8499; Q9967; 80306; 81003

== ENCOUNTER 2019-10-07 18:32 | Emergency (ER) | payer MEDICARE ==
[2019-10-07 20:52] LABS: BILIRUBIN,URINE NEGATIVE (NEGATIVE); GLUCOSE, URINE (UA) NEGATIVE (NEGATIVE); KETONES,URINE (UA) NEGATIVE (NEGATIVE); LEUKOCYTE ESTERASE, URINE SMALL (NEGATIVE); NITRITE,URINE NEGATIVE (NEGATIVE); OCCULT BLOOD,URINE SMALL (NEGATIVE); PROTEIN,URINE NEGATIVE (NEGATIVE); UROBILINOGEN,URINE 0.2 (NORMAL) E.U./dL (NORMAL)
[2019-10-07 20:54] LABS: CLARITY,URINE HAZY (CLEAR)
[2019-10-07 21:00] LABS: BACTERIA,URINE Moderate /HPF (None Seen); RBC,URINE 0-5 /HPF (0-5); SQUAMOUS EPITHELIAL CELL,UR FEW Squamous (<= Few)
--- NOTE | 2019-10-07 21:35 | ED Physician Documentation ---
PD HPI FEMALE - Stated complaint Stated Complaint: FEMALE - PCP REFERRAL - Chief complaint Chief Complaint: General - History obtained from History obtained from: Patient - History of Present Illness Timing - onset: Today Timing - duration: Hours Timing - details: Abrupt onset, Still present Associated symptoms: Urinary frequency Similar symptoms before: Diagnosis (UTI) Recently seen: Admitted - Additional information Additional information: 73-year-old female was recently admitted into the hospital with pulmonary embolism with hypoxia. She was placed on Eliquis and discharged from the hospital the next day and at that time she began to develop some difficulty with urination went to another hospital and had a catheter placed. She was seen by her primary care doctor in the office this morning after she pulled on her cat heter and developed some bleeding and he remove the catheter. He is asked patient to come to the emergency department for a bladder scan to make certain that she does not have a full bladder again. Review of Systems Constitutional: reports: Fatigue. denies: Fever, Chills Eyes: denies: Decreased vision Ears: denies: Ear pain Nose: denies: Congestion Throat: denies: Sore throat Cardiac: denies: Chest pain / pressure, Palpitations Respiratory: denies: Dyspnea, Cough GI: denies: Abdominal Pain, Nausea, Vomiting : reports: Frequency PD PAST MEDICAL HISTORY - Past Medical History Cardiovascular: None Neuro: None Endocrine/Autoimmune: None GI: Hemorrhoids : None Psych: Depression, Anxiety Musculoskeletal: Other Derm: Herpes zoster - Past Surgical History Past Surgical History: Yes General: Cholecystectomy, Bowel surgery, Colonoscopy Ortho: Other - Present Medications Home Medications: Ambulatory Orders Medication Instructions Recorded Confirmed Acyclovir 400 mg PO BID 09/22/17 10/01/19 Citalopram [CeleXA] 30 mg PO QPM 09/22/17 10/01/19 Fluticasone [Flonase] 2 spray LIT PRN PRN 09/22/17 10/01/19 Gabapentin 300 mg PO QPM 09/22/17 10/01/19 Amitriptyline HCl 75 mg PO QPM 09/30/19 10/01/19 Apixaban [Eliquis] 10 mg PO 0800,2000 #70 tablet 10/01/19 Cyclobenzaprine [Flexeril] 10 mg PO TID PRN #5 tablet 10/01/19 Ibuprofen 600 mg PO 0800,1200 10/01/19 10/01/19 Ibuprofen/Diphenhydramine Cit 0.5 tab PO QPM 10/01/19 10/01/19 [Ibuprofen Pm Caplet] Melatonin 6 mg PO QPM 10/01/19 10/01/19 Oxycodone HCl/Acetaminophen 1 tab PO Q6H PRN #4 tablet 10/01/19 [Oxycodone-Acetaminophen 10-325] Sulfamethoxazole/Trimethoprim 1 each PO BID #14 tablet 10/07/19 [Sulfamethoxazole-Tmp Ds Tablet] - Allergies Allergies/Adverse Reactions: Allergies Allergy/AdvReac Type Severity Reaction Status Date / Time amoxicillin [From Augmentin] Allergy Intermediate Unknown Verified 10/07/19 18:51 clavulanic acid Allergy Intermediate Unknown Verified 10/07/19 18:51 [From Augmentin] - Social History Does the pt smoke?: No Smoking Status: Former smoker Does the pt drink ETOH?: Yes Does the pt have substance abuse?: No - Immunizations Immunizations are current?: Yes Immunizations: TDAP current <10years PD ED PE NORMAL - Vitals Vital signs reviewed: Yes (Hypertensive) - General General: Alert and oriented X 3, No acute distress, Well developed/nourished - HEENT HEENT: Atraumatic, PERRL, EOMI - Neck Neck: Supple, no meningeal sign - Respiratory Respiratory: No respiratory distress - Derm Derm: Normal color, Warm and dry, No rash - Extremities Extremities: No deformity, No edema - Neuro Neuro: Alert and oriented X 3, brick and blocker aid labor 2-12 intact, No motor deficit, No sensory deficit, Normal speech Eye Opening: Spontaneous Motor: Obeys Commands Verbal: Oriented GCS Score: 15 - Psych Psych: Normal mood, Normal affect Results - Vitals Vitals: Vital Signs - 24 hr 10/07/19 10/07/19 18:51 21:53 Temperature 36.8 C 36.9 C Heart Rate 87 92 Respiratory 15 16 Rate Blood Pressure 147/96 H 147/92 H O2 Saturation 98 97 Oxygen O2 Source [With Activity] Room air O2 Source Room air - Labs Labs: Laboratory Tests 10/07/19 20:45 Urine Color YELLOW Urine Clarity HAZY Urine pH 6.0 Ur Specific Superior 1.010 Urine Protein NEGATIVE Urine Glucose (UA) NEGATIVE Urine Ketones NEGATIVE Urine Occult Blood SMALL H Urine Nitrite NEGATIVE Urine Bilirubin NEGATIVE Urine Urobilinogen 0.2 (NORMAL) Ur Leukocyte Esterase SMALL H Urine RBC 0-5 Urine WBC 6-10 H Ur Squamous Epith Cells FEW Squamous Urine Bacteria Moderate H Ur Microscopic Review INDICATED Urine Culture Comments INDICATED PD MEDICAL DECISION MAKING - ED course Complexity details: reviewed old records, reviewed results, re-evaluated patient, considered differential, d/w patient ED course: 73-year-old female with a recent and acute urinary retention that was presumed to be secondary to the use of oxycodone has switched to hydrocodone and she does not appear to have urinary retention related to that medication. Her catheter was pulled earlier in the day today and today in the emergency department her postvoid residual is 12 mL. She is able to provide a specimen for examination and this does appear to show evidence of urinary tract infection. She is placed on Septra. Departure - Departure Disposition: 01 Home, Self Care Clinical Impression: Urinary tract infection Qualifiers: Urinary tract infection type: acute cystitis Hematuria presence: without hematuria Qualified Code(s): N30.00 - Acute cystitis without hematuria Condition: Stable Instructions: ED UTI Cystitis Female Follow-Up: Alec Saunders MD [Primary Care Provider] - Prescriptions: Sulfamethoxazole/Trimethoprim [Sulfamethoxazole-Tmp Ds Tablet] 1 each PO BID #14 tablet Discharge Date/Time: 10/07/19 21:53
[2019-10-07] MEDS ORDERED: SULFAM/TRIM 800/160 Prepack 2 PO ONE (21:36)
[2019-10-07 21:55] VITALS: BP 147/92
== END 2019-10-07 21:53 | disposition home or self-care (01) ==
LOC: ED 18:32
DX: N30.00 Acute cystitis without hematuria (principal); Z87.891 Personal history of nicotine dependence
CPT/HCPCS: 51798; 81001; 81003; 87086; 87181; 99283; 99284

== ENCOUNTER 2019-11-24 14:14 | Outpatient (CLI) | payer MEDICARE | END 2019-11-24 14:15 | disposition short-term general hospital (02) | LOC: EMS 14:14 | PROVIDERS: ATTEND Surgery | DX: R29.818 Other symptoms and signs involving the nervous system (principal) | CPT/HCPCS: A0425; A0429 ==

== ENCOUNTER 2020-04-15 08:25 | Outpatient (CLI) | payer MEDICARE | END 2020-04-15 08:26 | disposition short-term general hospital (02) | LOC: EMS 08:25 | PROVIDERS: ATTEND Surgery | DX: R06.00 Dyspnea, unspecified (principal); R07.9 Chest pain, unspecified; M54.2 Cervicalgia; R00.0 Tachycardia, unspecified | CPT/HCPCS: A0425; A0427 ==

== ENCOUNTER 2020-05-03 15:17 | Outpatient (CLI) | payer MEDICARE | END 2020-05-03 15:18 | disposition short-term general hospital (02) | LOC: EMS 15:17 | PROVIDERS: ATTEND Surgery | DX: R55 Syncope and collapse (principal) | CPT/HCPCS: A0425; A0427 ==

== ENCOUNTER 2020-07-18 08:00 | Outpatient (CLI) | payer MEDICARE ==
[2020-07-18 13:16] LABS: BASOPHILS % (AUTO) 0.5 %; EOSINOPHILS # (AUTO) 0.2 10^3/uL (0.0-0.7); EOSINOPHILS % (AUTO) 3.6 %; HGB - HEMOGLOBIN 12.8 g/dL (12.0-16.0); LYMPHOCYTES # (AUTO) 0.9 10^3/uL (1.5-3.5); MEAN CORPUSCULAR HEMOGLOBIN 31.4 pg (27.0-31.0); MEAN CORPUSCULAR HGB CONC 31.7 g/dL (32.0-36.0); MEAN PLATELET VOLUME 10.5 fL (7.9-10.8); MONOCYTES # (AUTO) 0.4 10^3/uL (0.0-1.0); MONOCYTES % (AUTO) 7.2 %; NEUTROPHILS # (AUTO) 3.9 10^3/uL (1.5-6.6); PLT - PLATELET COUNT 255 10^3/uL (130-450); RED BLOOD COUNT 4.08 10^6/uL (4.20-5.40); RED CELL DISTRIBUTION WIDTH 15.5 % (12.0-15.0); WHITE BLOOD COUNT 5.5 x10^3/uL (4.8-10.8)
[2020-07-18 13:41] LABS: ALBUMIN 4.2 g/dL (3.2-5.5); ALBUMIN/GLOBULIN RATIO 1.2 (1.0-2.2); BILIRUBIN,TOTAL 0.4 mg/dL (0.2-1.0); CALCIUM 9.6 mg/dL (8.5-10.3); CREATININE 0.8 mg/dL (0.4-1.0); TOTAL PROTEIN 7.7 g/dL (6.7-8.2)
[2020-07-18 13:54] LABS: THYROID STIMULATING HORMONE 17.33 uIU/mL (0.34-5.60)
[2020-07-18 13:56] LABS: FREE T4 (FREE THYROXINE) 1.55 ng/dL (0.58-1.64)
== END 2020-07-18 23:59 | disposition home or self-care (01) ==
LOC: LAB.R 08:00
PROVIDERS: ATTEND Physician Assistant
DX: R74.8 Abnormal levels of other serum enzymes (principal); R94.6 Abnormal results of thyroid function studies; D50.9 Iron deficiency anemia, unspecified
CPT/HCPCS: 80053; 83540; 84439; 84443; 84466; 85025

== ENCOUNTER 2021-05-25 15:58 | Outpatient (CLI) | payer MEDICARE | END 2021-05-25 15:59 | disposition short-term general hospital (02) | LOC: EMS 15:58 | DX: R00.0 Tachycardia, unspecified (principal) | CPT/HCPCS: A0425; A0427 ==

== ENCOUNTER 2021-05-26 12:16 | Outpatient (CLI) | payer MEDICARE | END 2021-05-26 12:17 | disposition short-term general hospital (02) | LOC: EMS 12:16 | DX: R00.0 Tachycardia, unspecified (principal); R06.09 Other forms of dyspnea | CPT/HCPCS: A0425; A0429 ==